=== PATIENT | male | born 1970 | race Caucasian/White ===

== ENCOUNTER 2022-07-30 15:20 | Day surgery (SDC) | payer OTHER, BC ==
[~2022-07-30 15:20] MED LIST: Iopamidol-370 76% 500 ML 1 ML ONE
[2022-07-30] MEDS ORDERED: HYDROmorphone 0.5 MG/0.5 ML SYRINGE ONE (15:25)
[2022-07-30] MEDS ORDERED: CEFAZOLIN 2 GM in Sodium Chloride 0.9% 100 ML IVPB SCH ×2 (16:00→23:59)
[2022-07-30] MEDS ORDERED: Vancomycin HCl 1.5 GM in Sodium Chloride 0.9% 250 ML 300 ML IVPB SCH (16:00)
[2022-07-30 16:06] LABS: #Basophils 0.1 thou/uL (0.0-0.2); #Eosinphils 0.3 thou/uL (0.0-0.7); #Neutrophils 8.3 thou/uL (1.40-6.50); %Basophils 0.7 % (0.0-1.0); %Eosinophils 2.6 % (0.0-10.0); %Monocytes 9.8 % (0.0-10.0); Hemoglobin 13.4 g/dL (14.0-18.0); Mean Corpuscular HGB CONC 31.9 g/dL (32.0-36.0); Mean Corpuscular Hemoglobin 29.6 pg (27.0-31.0); Mean Corpuscular Volume 92.7 fL (78.0-98.0); Mean Platelet Volume 8.6 fL (7.4-10.4); Platelet Count 133 thou/uL (130-400); Red Blood Cell (RBC) Count 4.52 mill/uL (4.70-6.10); White Blood Cell (WBC) Count 10.6 thou/uL (4.8-10.8)
[2022-07-30] MEDS ORDERED: CEFAZOLIN 2 GM VIAL ONE (16:16)
[2022-07-30] MEDS ORDERED: Vancomycin (BATCH) 1.5 GRAM/300 ML BAG ONE (16:16)
[2022-07-30] MEDS ORDERED: Sodium Chloride 0.9% 100 ML ONE (16:16)
[2022-07-30 16:19] LABS: ALT (SGPT) 21 U/L (8-55); AST (SGOT) 34 U/L (5-34); Albumin 2.8 g/dL (3.5-5.0); Alcohol Less than 10 mg/dL (Less than 10); Alkaline Phosphatase 146 U/L (40-110); Anion Gap 13 mmol/L (10-20); BUN (Urea Nitrogen) 12 mg/dL (8.4-25.7); Bilirubin, Total 2.5 mg/dL (0.2-1.2); Calc. Creatinine Clearance 0 mL/min (70-130); Calcium 7.8 mg/dL (7.8-10.44); Carbon Dioxide 20 mmol/L (22-29); Chloride 105 mmol/L (98-107); Estimated GFR 109; Globulin 3.7 g/dL (2.4-3.5); Glucose 176 mg/dL (70-105); Potassium 3.8 mmol/L (3.5-5.1); Protein, Total 6.5 g/dL (6.0-8.3); Sodium 134 mmol/L (136-145)
[2022-07-30] MEDS ORDERED: fentaNYL Citrate/PF 100 MCG/2 ML SYRINGE ONE (16:20)
[2022-07-30] MEDS ORDERED: Ondansetron PF 4 MG/2 ML Vial IVP PRN (16:36)
[2022-07-30] MEDS ORDERED: Morphine 4 MG/ML VIAL SLOW IVP PRN ×2 (16:36→23:16)
[2022-07-30] MEDS ORDERED: Dextrose 5% in Water 1,000 ML IV PRN (16:36)
[2022-07-30] MEDS ORDERED: Dextrose 50% Abboject 50 ML SYRINGE SLOW IVP PRN (16:36)
[2022-07-30] MEDS ORDERED: hydrALAZINE 20 MG/ML VIAL SLOW IVP PRN (16:36)
[2022-07-30] MEDS ORDERED: Sodium Chloride 0.9% 1,000 ML IV SCH (16:45)
[2022-07-30] MEDS ORDERED: PHENYLEPHRINE-NS 100 MCG/ML 10 ML SYRINGE ONE (17:07)
[2022-07-30] MEDS ORDERED: NEOSTIGMINE 3 MG/3 ML SYR 3 MG/3 ML SYRINGE ONE (17:07)
[2022-07-30] MEDS ORDERED: Succinylcholine 200 MG/10 ml SYRINGE FS ONE (17:07)
[2022-07-30] MEDS ORDERED: Ondansetron PF 4 MG/2 ML Vial ONE (17:07)
[2022-07-30] MEDS ORDERED: ePHEDrine 50 MG/ML VIAL ONE (17:07)
[2022-07-30] MEDS ORDERED: Rocuronium Bromide 10 MG/ML (10ML VIAL) ONE (17:07)
[2022-07-30] MEDS ORDERED: Glycopyrrolate 0.2 MG/ML 5 ML SYRINGE ONE (17:07)
[2022-07-30] MEDS ORDERED: PROPOFOL 200 MG/20 ML VIAL ONE (17:07)
[2022-07-30] MEDS ORDERED: Phenylephrine 10 MG/ML VIAL ONE (18:17)
[2022-07-30] MEDS ORDERED: HYDROmorphone 2 MG/ML VIAL SLOW IVP PRN (18:48)
[2022-07-30] MEDS ORDERED: Promethazine HCl 25 MG/ML VIAL IVPB PRN (18:48)
[2022-07-30] MEDS ORDERED: Promethazine HCl 25 MG/ML VIAL IM PRN (18:48)
[2022-07-30] MEDS ORDERED: Morphine Sulfate 2 MG/ML SYRINGE SLOW IVP PRN (18:48)
[2022-07-30] MEDS ORDERED: PACU-Morphine 4MG/ML VIAL SLOW IVP PRN (18:48)
[2022-07-30] MEDS ORDERED: Ondansetron HCl/PF 4 MG/2 ML Vial IVP PRN (18:48)
[2022-07-30] MEDS ORDERED: Fentanyl 100 MCG/2 ML VIAL ONE ×2 (19:06→20:44)
[2022-07-30] MEDS ORDERED: cefTRIAXone\\ROCEPHIN 500 MG in Sodium Chloride 0.9% 100 ML IVPB SCH (21:00)
[2022-07-30] MEDS ORDERED: Famotidine 20 MG TAB PO SCH (21:00)
[2022-07-30 21:01] LABS: SARS-CoV-2 NAA Rapid Test Not Detected (NotDetected)
[2022-07-30 21:53] LABS: #Basophils 0.1 thou/uL (0.0-0.2); #Eosinphils 0.1 thou/uL (0.0-0.7); #Monocytes 1.6 thou/uL (0.11-0.59); #Neutrophils 9.8 thou/uL (1.40-6.50); %Basophils 0.4 % (0.0-1.0); %Eosinophils 0.5 % (0.0-10.0); %Lymphocytes 8.1 % (21.0-51.0); %Monocytes 13.1 % (0.0-10.0); %Neutrophils 77.8 % (42.0-75.0); Mean Corpuscular HGB CONC 32.1 g/dL (32.0-36.0); Mean Corpuscular Hemoglobin 30.3 pg (27.0-31.0); Mean Corpuscular Volume 94.4 fl (78.0-98.0); Mean Platelet Volume 8.5 fL (7.4-10.4); Platelet Count 147 thou/uL (130-400); Red Blood Cell (RBC) Count 4.62 mill/uL (4.70-6.10); White Blood Cell (WBC) Count 12.5 thou/uL (4.8-10.8)
[2022-07-30] MEDS ORDERED: Famotidine 20 MG TAB ONE (21:55)
[2022-07-30] MEDS ORDERED: TETANUS, DIPHTHERIA TOX,ADULT (TDVAX) 0.5 ML VIAL IM ONE (22:00)
[2022-07-30 22:07] LABS: Lactic Acid 2.3 mmol/L (0.5-2.2)
[2022-07-30 22:12] LABS: Anion Gap 14 mmol/L (10-20); BUN (Urea Nitrogen) 12 mg/dL (8.4-25.7); Calc. Creatinine Clearance 0 mL/min (70-130); Calcium 7.8 mg/dL (7.8-10.44); Carbon Dioxide 18 mmol/L (22-29); Chloride 106 mmol/L (98-107); Estimated GFR 109; Glucose 139 mg/dL (70-105); Magnesium 1.7 mg/dL (1.6-2.6); Phosphorus 3.7 mg/dL (2.3-4.7); Potassium 4.4 mmol/L (3.5-5.1); Sodium 134 mmol/L (136-145)
[2022-07-30] MEDS ORDERED: Morphine 2 MG/ML VIAL ONE (22:23)
[2022-07-30] MEDS ORDERED: Ketorolac Tromethamine 30 MG/ML VIAL ONE ×2 (22:48→23:30)
[2022-07-30] MEDS ORDERED: Cyclobenzaprine 10 MG TAB ONE ×2 (22:49→23:32)
[2022-07-30] MEDS ORDERED: traMADol HCl 50 MG TAB ONE (22:49)
[2022-07-30] MEDS ORDERED: traMADol HCl 50 MG TAB PO PRN (22:59)
[2022-07-30] MEDS ORDERED: Ketorolac Tromethamine 30 MG/ML VIAL IVP SCH (23:00)
[2022-07-30] MEDS ORDERED: Cyclobenzaprine 10 MG TAB PO PRN (23:16)
[2022-07-30] MEDS: Cyclobenzaprine 10 MG TAB PO SCH (23:34)
[2022-07-30] MEDS ORDERED: Acetaminophen 500 MG TAB PO SCH (23:59)
[2022-07-31] MEDS: Cyclobenzaprine 10 MG TAB PO SCH (00:37)
[2022-07-31] MEDS ORDERED: Ibuprofen 200 MG TAB PO SCH (06:00)
[2022-07-31] MEDS ORDERED: Gabapentin 300 MG CAP PO SCH (09:00)
== END 2022-07-31 00:31 | disposition critical access hospital (66) ==
LOC: ERS 15:20 → SDC 16:59
PROVIDERS: ATTEND Surgery
PROC: 0QSG05Z Reposition Right Tibia with External Fixation Device, Open Approach (ICD-10-PCS; principal; 2022-07-30)
PROC: 0QBG0ZZ Excision of Right Tibia, Open Approach (ICD-10-PCS; principal; 2022-07-30)
PROC: 0QSJ05Z Reposition Right Fibula with External Fixation Device, Open Approach (ICD-10-PCS; principal; 2022-07-30)
PROC: 0QBJ0ZZ Excision of Right Fibula, Open Approach (ICD-10-PCS; principal; 2022-07-30)
DX: S87.81XA Crushing injury of right lower leg, initial encounter (principal); S82.251B Displaced comminuted fracture of shaft of right tibia, initial encounter for open fracture type I or II; S82.451B Displaced comminuted fracture of shaft of right fibula, initial encounter for open fracture type I or II; E11.9 Type 2 diabetes mellitus without complications; K74.60 Unspecified cirrhosis of liver; I11.9 Hypertensive heart disease without heart failure; J44.9 Chronic obstructive pulmonary disease, unspecified; K55.059 Acute (reversible) ischemia of intestine, part and extent unspecified; Z79.82 Long term (current) use of aspirin; Z79.84 Long term (current) use of oral hypoglycemic drugs; Z79.899 Other long term (current) drug therapy; Z88.0 Allergy status to penicillin; Z20.822 Contact with and (suspected) exposure to COVID-19; W31.89XA Contact with other specified machinery, initial encounter; Y92.65 Oil rig as the place of occurrence of the external cause; Y99.0 Civilian activity done for income or pay
CPT/HCPCS: 36415; 36430; 71045; 75635; 80053; 80307; 82533; 83605; 83735; 84100; 85025; 86850; 86900; 86901; 93005; C1713; C1776; G0390; J0696; J1170; J1885; J2270; J2370; J2405; J2704; J3010; J3370; J3490; P9016; Q9967; U0002